=== PATIENT | male | born 1950 | race Caucasian/White ===

== ENCOUNTER → 2020-09-17 09:15 | Outpatient (BNVA) | payer OTHER, MEDICARE, SELFPAY | PROVIDERS: PCP Internal Medicine; Visit Provider Surgery | DX: Z76.89 Persons encountering health services in other specified circumstances (principal) ==

== ENCOUNTER 2020-10-02 12:22 | Outpatient (REF) | payer MEDICARE, OTHER, SELFPAY ==
--- NOTE | 2020-10-02 12:25 | CT_ITS ---
EXAMINATION: CT PELVIS WITHOUT CONTRAST CLINICAL INFORMATION: Right lower quadrant pain. History of right hernia repair. COMPARISON: None TECHNIQUE: Helical scanning was performed with submillimeter collimation through the pelvis. Sagittal and coronal multiplanar 2-D reconstructions were obtained. This CT examination was performed using dose optimization techniques as appropriate, variously including the following: *Automated exposure control *Adjustment of mA and/or kV according to patient size (this includes techniques or standardized protocols for targeted exams where dose is matched to indication/reason for exam; i.e. extremities or head) *Use of iterative reconstruction technique DLP: 315 mGy-cm FINDINGS: There is severe diverticulosis of the colon. There is stool throughout the colon questionable for constipation. The bladder is normal. The prostate gland has been removed. There are surgical clips in the retroperitoneum suggestive of previous lymph node dissection. No enlarged lymph nodes or ascites is seen. No hernia or fluid collection is seen. There are degenerative changes of the hip joints and degenerative disc disease of the visualized lower lumbar spine. There is a nonspecific 5 mm sclerotic lesion in the right iliac crest. CT/CT pelvis wo con IMPRESSION: Severe diverticulosis of the colon. Stool throughout the colon questionable for constipation. Postsurgical changes following prostatectomy and lymph node dissection. No recurrent hernia or postoperative fluid collection seen. 5 mm nonspecific sclerotic lesion in the right iliac bone.
== END 2020-10-02 12:23 | disposition home or self-care (01) ==
LOC: HO.CT 12:22
PROVIDERS: Visit Provider Surgery
DX: R10.31 Right lower quadrant pain (principal)
CPT/HCPCS: 72192

== ENCOUNTER 2020-11-01 07:59 | Day surgery (SDC) | payer MEDICARE, OTHER, SELFPAY ==
[2020-10-28 11:19] VITALS: BMI 22.4
--- NOTE | 2020-10-29 13:42 | P.CONAN_ITS ---
Documented by User: Celia Renee 10/29/20 13:49 HPI - Anesthesia Eval Consult details Narrative: 70yo M for Colonoscopy with antibiotics (s/p bovine AVR in 2015) [facility] Past Medical History Medical History Cancer Hypercholesterolemia Memory impairment Tubular adenoma of colon Family History Family History Father History of colon cancer Maternal Uncle History of prostate cancer Surgical History Surgical History H/O colonoscopy History of right inguinal hernia repair (~1999) History of shoulder replacement Hx of aortic valve replacement with porcine valve Hx of left inguinal hernia repair Hx of radical prostatectomy Social History Social History Alcohol intake: never Smoking Status: Never smoker Tobacco Type: Cigarette Second Hand Smoke Exposure: No Use of substances other than those prescribed or required for medical reasons: No Advance Directives: No Advance Directives Information Provided: No Advance Directives on File: No Narrative Narrative: Cardiac OV in 05/2020. Stable with regular activity. No changes to treatment plan. Meds Allergies Allergy/AdvReac Type Severity Reaction Status Date / Time No Known Allergies Allergy Verified 09/17/20 09:34 Home Medications Medication Instructions Recorded Confirmed Type aspirin 81 mg tablet,delayed 81 mg PO DAILY 09/17/20 10/28/20 History release atorvastatin 80 mg tablet 80 mg PO DAILY 09/17/20 10/28/20 History ezetimibe 10 mg tablet 10 mg PO DAILY 09/17/20 10/28/20 History memantine 10 mg tablet 10 mg PO BID 09/17/20 10/28/20 History donepezil 10 mg PO DAILY 10/28/20 10/28/20 History pantoprazole 40 mg PO DAILY PRN 10/28/20 10/28/20 History Exam Exam Date and Time: October 29, 2020 1342 Height,Weight and Vital Signs: Height 5 ft 4 in Weight 59.421 kg Narrative Narrative: EKG 05/2020: NSR Minor ST-T abnormalities ECHO 2018 LV is poorly visualized LV size is normal Mild mod conc LVH EF 65-75% No WMA seen on limitied views Gr 1, mild DD with impaired LV relaxation, may be normal for the patients age Normally functioning bioprosthetic valve in the aortic position Mild dilation of ascending aorta Pulm Artery Systolic Pressure 25-30mmHg No change from prior study Assessment and Plan Assessment Anesthesia Assessment: Chart Reviewed Documented by User: Flor Abad 11/01/20 08:46 PMFSH Past Medical History Medical History Cancer Hypercholesterolemia Memory impairment Tubular adenoma of colon Family History Family History Father History of colon cancer Maternal Uncle History of prostate cancer Family history of problems with anesthesia: No Surgical History Surgical History H/O colonoscopy History of right inguinal hernia repair (~1999) History of shoulder replacement Hx of aortic valve replacement with porcine valve Hx of left inguinal hernia repair Hx of radical prostatectomy History of Problems with Anesthesia: No Social History Social History Alcohol intake: never Smoking Status: Never smoker Tobacco Type: Cigarette Second Hand Smoke Exposure: No Use of substances other than those prescribed or required for medical reasons: No Advance Directives: No Advance Directives Information Provided: No Advance Directives on File: No Meds Allergies Allergy/AdvReac Type Severity Reaction Status Date / Time No Known Allergies Allergy Verified 09/17/20 09:34 Home Medications Medication Instructions Recorded Confirmed Type aspirin 81 mg tablet,delayed 81 mg PO DAILY 09/17/20 10/28/20 History release atorvastatin 80 mg tablet 80 mg PO DAILY 09/17/20 10/28/20 History ezetimibe 10 mg tablet 10 mg PO DAILY 09/17/20 10/28/20 History memantine 10 mg tablet 10 mg PO BID 09/17/20 10/28/20 History donepezil 10 mg PO DAILY 10/28/20 10/28/20 History pantoprazole 40 mg PO DAILY PRN 10/28/20 10/28/20 History Exam Height,Weight and Vital Signs: Vital Signs Temp Pulse Resp BP Pulse Ox 11/01/20 08:15 97.7 F 79 16 133/89 97 Airway Mallampati Class: II TM Dist: >3cm Neck ROM: Full Heart: RRR ?murmur Lungs: CTAB Assessment and Plan Assessment Anesthesia Assessment: Anesthesia Plan Discussed and Chart Reviewed Final Anesthetic Review NPO: Yes ASA Class: III Final Preanesthetic Review: No Changes in Pt Med Stat, Meds/Allgs Chart Reviewed, Consent Obtained/Reviewed and Anes Risks/Benef Reviewed Patient Risk: Intermediate Procedure Risk: Low Assessment/Block/Sedation in SS: Assess/Block/Sedation-SS Anesthetic Plan Anesthetic Plan: MAC: Disposition: Standard PACU
[2020-10-31 08:48] VITALS: BMI 22.4
[2020-11-01 08:15] VITALS: BP 133/89; PULSE 79; RESP 16; TEMP 36.5; O2SAT 97
[2020-11-01] MEDS: Lactated Ringers 1,000 ML 50 ML IVCONT (08:24)
[2020-11-01] MEDS: Ampicillin Sodium 2 GM in 0.9 % Sodium Chloride 100 ML IV (08:30)
[2020-11-01] MEDS: Gentamicin Sulfate/NaCl 80 MG/100 ML PIGGYBACK 100 MG IV (08:44)
[2020-11-01 10:20] VITALS: BP 131/79; PULSE 58; RESP 18; TEMP 36.7; O2SAT 98
--- NOTE | 2020-11-01 10:24 | PM.OP ---
Brief Operative Note Date of Service: 11/01/20 Pre-op diagnosis: Screening Post-op diagnosis: other (Colon polyp) Procedure: Colonoscopy to cecum and TI with biopsy and removal of polyp Surgeon: Jorge A Barney Anesthesia: MAC Estimated blood loss (mL): 3.0 Pathology: other (A. Cecal polyp) Condition: stable Disposition: PACU
[2020-11-01 10:35] VITALS: BP 154/87; PULSE 56; RESP 18; TEMP 37.1; O2SAT 98
--- NOTE | 2020-11-01 10:47 | OP_ITS ---
SURGEON: Jorge A Barney MD INDICATIONS: The patient presents for evaluation of colorectal cancer screening, family history of colon cancer, and personal history of tubular adenoma of the colon. Full consent has been obtained from him for this, including risks of bleeding and perforation. PREOPERATIVE DIAGNOSIS: POSTOPERATIVE DIAGNOSIS: PROCEDURE PERFORMED: Colonoscopy to cecum and terminal ileum with biopsy and removal of polyp. ESTIMATED BLOOD LOSS: COMPLICATIONS: ANESTHESIA: Medication used, monitored anesthesia care. ASSISTANTS: SPECIMENS: PREOPERATIVE DIAGNOSES: Colorectal cancer screening, personal history of tubular adenoma of the colon, and family history of colon cancer. POSTOPERATIVE DIAGNOSES: Colorectal cancer screening, personal history of tubular adenoma of the colon, family history of colon cancer, small colon polyp, diverticulosis, and internal hemorrhoids. DESCRIPTION OF PROCEDURE: The patient was placed in the left lateral decubitus position. The digital rectal exam revealed no abnormalities. The Olympus video pediatric colonoscope was entered into the rectum and advanced easily to the cecum. Once in the cecum, I did identify cecal pouch with appendiceal orifice and a normal-appearing ileocecal valve. The terminal ileum was cannulated and appeared normal. The scope was withdrawn back in the colon. The entire cecum was well visualized and appeared normal other than a 3 mm polyp, which was biopsied and completely removed with cold biopsy forceps. The scope was then slowly withdrawn assessing all mucosal surfaces carefully. Preparation was excellent. I did not visualize any other polyps, colitis, or angiodysplasia. There was a mild amount of sigmoid diverticulosis. In the rectum, scope was retroflexed visualizing internal hemorrhoids, but no other pathology. The rectal mucosa appeared normal. The scope was straightened out and withdrawn from the patient. He tolerated the procedure well and was returned to the recovery area in stable condition. IMPRESSION: 1. Small colon polyp, status post biopsy removal. 2. Diverticulosis. 3. Internal hemorrhoids. PLAN: The results of the biopsy will be checked. I would recommend a repeat colonoscopy in 5 years for further screening and surveillance. He was advised to resume his aspirin by tomorrow. He did receive preprocedure antibiotics for prophylaxis in regard to his aortic valve replacement and was given a prescription for amoxicillin to use later today. MD CAMPOS Oliveira/JANET / [id number]
--- NOTE | 2020-11-01 11:20 | HO.POSTANES ---
Post Anesthesia Evaluation Post Anesthesia Evaluation Vital Signs: Vital Signs Temp Pulse Resp BP Pulse Ox 11/01/20 10:35 98.8 F 56 18 154/87 H 98 11/01/20 10:20 98.0 F 58 18 131/79 98 11/01/20 08:15 97.7 F 79 16 133/89 97 Anesthesia: Monitored Mental Status: Awake Pain Control: Satisfactory Nausea/Vomiting: None Hydration: Adequate Anesthesia-Related Issues: No Anes. Related Issues
== END 2020-11-01 11:16 | disposition home or self-care (01) ==
PROVIDERS: PCP Internal Medicine; Visit Provider Internal Medicine
PROC: 0DJD8ZZ Inspection of Lower Intestinal Tract, Via Natural or Artificial Opening Endoscopic (ICD-10-PCS; CPT 45378; principal; 2020-11-01 09:30)
DX: Z12.11 Encounter for screening for malignant neoplasm of colon (principal); Z86.010 Personal history of colon polyps; Z80.0 Family history of malignant neoplasm of digestive organs; D12.0 Benign neoplasm of cecum; K57.30 Diverticulosis of large intestine without perforation or abscess without bleeding; K64.8 Other hemorrhoids; Z85.46 Personal history of malignant neoplasm of prostate; Z95.3 Presence of xenogenic heart valve; Z79.82 Long term (current) use of aspirin; Z79.899 Other long term (current) drug therapy
CPT/HCPCS: 45380; 88305; J0290; J1580

== ENCOUNTER 2021-03-17 13:45 | Emergency (ER) | payer OTHER, MEDICARE, SELFPAY ==
--- NOTE | ~2021-03-17 | XR_ITS ---
EXAMINATION: XR TIBIA AND FIBULA, RIGHT CLINICAL INFORMATION: Pain COMPARISON: None TECHNIQUE: AP and lateral views of the right tibia and fibula were obtained. FINDINGS: Bone alignment is normal. No fracture or dislocation is seen. There is mild arthritis at the right knee and ankle joint. Soft tissues are unremarkable. XR/XR tibia fibula RT 2V IMPRESSION: Arthritis at the right knee and ankle joints.
--- NOTE | ~2021-03-17 | US_ITS ---
EXAMINATION: US VENOUS ULTRASOUND WITH DOPPLER LOWER EXTREMITY, RIGHT CLINICAL INFORMATION: Right lower leg pain. Rule out phlebitis COMPARISON: None TECHNIQUE: Ultrasound of the deep veins is performed from the hip to the calf with compression sonography and color and pulse Doppler assessment. Spectral analysis with color-flow imaging is performed. FINDINGS: There is normal venous compression and respiratory variation and augmented flow. The visualized common femoral vein, superficial femoral vein, profunda femoral vein, popliteal vein, and the trifurcation region shows no evidence of deep venous thrombosis. There is no significant popliteal fossa cyst. There is a small anechoic fluid collection along the medial anterior ryan measuring 2.8 x 4.0 x 0.6 cm likely seroma. An abscess is considered unlikely If the patient's symptoms persist, followup ultrasound in 5 days 7 days might be of value to exclude proximal propagation from a non-visualized calf vein. US/US venous duplex LE RT IMPRESSION: No DVT demonstrated in the right lower extremity. Small fluid collection along the medial anterior ryan in the area of lump likely seroma from previous trauma or inflammation. An abscess is considered less likely.
[2021-03-17 14:11] VITALS: BP 115/71; PULSE 61; RESP 18; TEMP 36.4; O2SAT 98; BMI 22.4
--- NOTE | 2021-03-17 14:32 | ED.EXTPRO ---
HPI - Extremity Problem General Chief complaint: Extremity Problem <CHALO Hall Last Filed: 03/31/21 15:56> Stated complaint: LEG ISSUES <CHALO Hall Last Filed: 03/31/21 15:56> Time Seen by Provider: 03/17/21 14:25 <CHALO Hall Last Filed: 03/31/21 15:56> History of Present Illness HPI Narrative: Patient complains of 3 days of pain in the right lower leg he feels a small bump there it is painful, there is no injury, no back pain no numbness weakness or tingling <CHALO Hall Last Filed: 03/31/21 15:56> Related Data Home medications: Home Medications Medication Instructions Recorded Confirmed aspirin 81 mg tablet,delayed 81 mg PO DAILY 09/17/20 10/28/20 release atorvastatin 80 mg tablet 80 mg PO DAILY 09/17/20 10/28/20 ezetimibe 10 mg tablet 10 mg PO DAILY 09/17/20 10/28/20 memantine 10 mg tablet 10 mg PO BID 09/17/20 10/28/20 donepezil 10 mg PO DAILY 10/28/20 10/28/20 pantoprazole 40 mg PO DAILY PRN 10/28/20 10/28/20 <CHALO Hall Last Filed: 03/31/21 15:56> Allergies/Adverse reactions: Allergies Allergy/AdvReac Type Severity Reaction Status Date / Time No Known Allergies Allergy Verified 09/17/20 09:34 <CHALO Hall Last Filed: 03/31/21 15:56> Review of Systems Review of Systems: Positive for right lower leg pain No fever no chills no dizziness no weakness no fainting no feeling faint no headache no neck pain no chest pain no shortness of breath no palpitations no abdominal pain no nausea or vomiting no back pain no numbness weakness or tingling no rash, no recent injury <CHALO Hall Last Filed: 03/31/21 15:56> Yes all other systems are reviewed and are negative <CHALO Hall Last Filed: 03/31/21 15:56> PMFSH Past Medical History Source: nursing notes reviewed <CHALO Hall Last Filed: 03/31/21 15:56> Medical History: Medical History Cancer Hypercholesterolemia Memory impairment Tubular adenoma of colon <CHALO Hall - Last Filed: 03/31/21 15:56> Surgical History: Surgical History H/O colonoscopy History of right inguinal hernia repair (~1999) History of shoulder replacement Hx of aortic valve replacement with porcine valve Hx of left inguinal hernia repair Hx of radical prostatectomy <CHALO Hall - Last Filed: 03/31/21 15:56> Family History Family History: Family History Father History of colon cancer Maternal Uncle History of prostate cancer <CHALO Hall - Last Filed: 03/31/21 15:56> Social History Social History: Social History Alcohol intake: never Second Hand Smoke Exposure: No Advance Directives: No Advance Directives Information Provided: No <CHALO Hall - Last Filed: 03/31/21 15:56> Physical Exam Vital Signs: Vital Signs: Last Vital Signs Temp 97.5 F 03/17/21 14:11 Pulse 61 03/17/21 14:11 Resp 18 03/17/21 14:11 BP 115/71 03/17/21 14:11 Pulse Ox 98 03/17/21 14:11 Body Mass Index 22.4 <CHALO Hall - Last Filed: 03/31/21 15:56> Vital Signs: Last Vital Signs Temp 97.5 F 03/17/21 14:11 Pulse 61 03/17/21 14:11 Resp 18 03/17/21 14:11 BP 115/71 03/17/21 14:11 Pulse Ox 98 03/17/21 14:11 Body Mass Index 22.4 <Shaun Hay MD - Last Filed: 05/03/21 09:08> General appearance no acute distress Head is normocephalic atraumatic Neck is supple The back is full range of motion Respiratory no acute distress Chest is clear to auscultation bilateral Abdomen soft nontender Extremities full range of motion x4 The right lower leg had lateral tenderness no obvious swelling, no wound, skin is intact no redness or warmth, there was also some posterior calf tenderness, good range of motion in the knee normal range of motion in the ankle and gait was normal Skin no rashes Neuro no gross motor or sensory deficits <CHALO Hall - Last Filed: 03/31/21 15:56> Course Course Course Narrative: X-ray of the right tib-fib was normal Ultrasound did not show any DVT in the lower extremity and patient is advised to follow with primary doctor or orthopedist for further evaluation He is well-appearing and is discharged <CHALO Hall - Last Filed: 03/31/21 15:56> I have reviewed the chart <Shaun Hay MD - Last Filed: 05/03/21 09:08> Discharge Plan Discharge Clinical Impression: Seroma <CHALO Hall Last Filed: 03/31/21 15:56> Patient Disposition: Home, Self-Care <CHALO Hall Last Filed: 03/31/21 15:56> Additional Instructions: Ultrasound did not show any deep vein clot When they looked at the lump near your ryan it contained fluid and they thought it was something called a seroma which can sometimes happen after bumping your leg or minor trauma to the leg, but we are not certain follow with primary doctor or orthopedist for further evaluation Return any time for redness swelling increased pain fever any worse condition or any concerns <CHALO Hall Last Filed: 03/31/21 15:56> Prescriptions: No Action donepezil 10 mg tablet 10 mg PO DAILY RF: 0 pantoprazole 40 mg Tablet,Delayed Release (Dr/Ec) 40 mg PO DAILY PRN (Reason: Acid Reflux) RF: 0 atorvastatin 80 mg tablet 80 mg PO DAILY RF: 0 memantine 10 mg tablet 10 mg PO BID RF: 0 aspirin [Adult Low Dose Aspirin] 81 mg tablet,delayed release (DR/EC) 81 mg PO DAILY RF: 0 ezetimibe 10 mg tablet 10 mg PO DAILY RF: 0 <CHALO Hall Last Filed: 03/31/21 15:56> Referrals: Robe Aceves MD [Physician] - 1 week (Painful small mass on ryan, no abscess) <CHALO Hall Last Filed: 03/31/21 15:56> Interventions: ED Discharge Assessment Last Done: 03/17/21 16:29 <CHALO Hall - Last Filed: 03/31/21 15:56> Discharge Date/Time: 03/17/21 16:29 <CHALO Hall - Last Filed: 03/31/21 15:56>
== END 2021-03-17 16:29 | disposition home or self-care (01) ==
PROVIDERS: Emergency Provider Emergency Medicine; PCP Internal Medicine
DX: S80.11XA Contusion of right lower leg, initial encounter (principal); R60.0 Localized edema; X58.XXXA Exposure to other specified factors, initial encounter; Y93.9 Activity, unspecified; Y92.9 Unspecified place or not applicable; Y99.9 Unspecified external cause status; Z79.899 Other long term (current) drug therapy
CPT/HCPCS: 73590; 93971; 99283